=== PATIENT | female | born 1955 | race Caucasian/White ===

== ENCOUNTER 2023-11-22 13:22 | Emergency (ER) | payer MEDICARE, SELFPAY ==
--- NOTE | ~2023-11-22 | CT_ITS ---
EXAMINATION: CT FACIAL BONES WITHOUT CONTRAST CLINICAL INFORMATION: Right eye pain COMPARISON: None TECHNIQUE: Axial images obtained through the facial bones and orbits. Coronal and sagittal reformatted images are performed at CT scanner. Intravenous contrast was administered. [This CT examination was performed using dose optimization techniques as appropriate, variously including the following: *Automated exposure control *Adjustment of mA and/or kV according to patient size (this includes techniques or standardized protocols for targeted exams where dose is matched to indication/reason for exam; i.e. extremities or head) *Use of iterative reconstruction technique] DLP: 157 mGy-cm FINDINGS: There is no acute maxillofacial fracture. The pterygoid plates are intact. The zygomatic arches are intact. The lamina papyracea are intact. The orbital rims are intact. Small dependent air-fluid level in the left maxillary sinus. Minimal lobular mucosal thickening at the anterior medial left sphenoid sinus. Mastoid air cells and middle ear cavities are normally aerated. There is mild preseptal edema over the right orbital region. The orbital globes and retrobulbar structures are normal. Portions of the brain are unremarkable. CT/CT orbit BI w IV con IMPRESSION: 1. Mild preseptal edema over the right orbital region. Orbital globes and retrobulbar structures are normal. 2. Small air-fluid level in the left maxillary sinus.
[2023-11-22 13:31] VITALS: BP 149/86; PULSE 85; RESP 18; TEMP 37.2; O2SAT 96; BMI 1517.3
--- NOTE | 2023-11-22 13:33 | ED.GENADULT ---
HPI - General Adult General Chief complaint: Eye Problems Stated complaint: CT scan for eye Time Seen by Provider: 11/22/23 16:09 Source: patient Mode of arrival: ambulatory Limitations: no limitations History of Present Illness ED Provider: Анна Roberts PA-C HPI narrative: Patient is a 68 year old assigned female at with no reported medical history presenting to the emergency department today with right eye pain, drainage from right eye, and blurry vision of the right eye. Patient states that she woke up with right eye swelling, pain, discharge, and blurry vision. Patient states that she was seen at a [facility] for this and they recommended she come to an ER. Patient denies any dizziness, lightheadedness, abdominal pain, nausea, vomiting, fever, chills, double vision, loss of vision, chest pain, difficulty breathing, shortness of breath, back pain, night sweats, pain with urination, increased urinary frequency, increased urinary urgency, blood in her urine or stool, syncope or a near syncopal episode, recent trauma or falls, bowel incontinence, bladder incontinence, bowel retention, bladder retention, or any other complaints at this time. Onset (ago): hour(s) Location: eyes and right Severity: mild Severity scale (1-10): 3 Relieving factors: none Exacerbating factors: none Associated symptoms: denies other symptoms Treatments prior to arrival: none Related Data Previous Rx's ?Medication ?Instructions ?Recorded doxycycline hyclate 100 mg tablet 100 mg PO BID 7 days #14 tabs 11/22/23 polymyxin B sulfate 10,000 1 drp ophthalmic (eye) QID 7 days 11/22/23 unit-trimethoprim 1 mg/mL eye drops #10 mL cefdinir 300 mg capsule 300 mg PO BID 7 days #14 caps 11/28/23 Allergies Allergy/AdvReac Type Severity Reaction Status Date / Time No Known Allergies Allergy Verified 11/22/23 13:33 Review of Systems Constitutional: Constitutional: Reports no additional constitutional complaints, Denies chills, Denies fever(s) and Denies night sweats Eyes: Eyes: Reports no additional eye complaints, Denies blurry vision, Denies change in vision, Denies diplopia, Denies eye discharge, Denies loss of vision and Denies eye pain ENT: Denies dizziness Comments: right eye pain, right eye drainage, blurry vision of right eye Cardiovascular: Cardiovascular: Reports no additional cardiovascular complaints, Denies chest pain, Denies lightheadedness, Denies Loss of Consciousness and Denies dyspnea Respiratory: Respiratory: Reports no additional respiratory complaints and Denies dyspnea Gastrointestinal: Gastrointestinal: Reports no additional gastrointestinal complaints, Denies abdominal pain, Denies melena, Denies hematochezia, Denies change in bowel habits and Denies change in stool character Genitourinary: Genitourinary: Denies hematuria, Denies urinary frequency, Denies dysuria, Denies urinary incontinence, Denies urinary hesitancy and Denies urinary urgency Musculoskeletal: Musculoskeletal: Reports no additional musculoskeletal complaints, Denies numbness and Denies tingling Neurologic: Denies dizziness, Denies loss of vision, Denies numbness and Denies tingling Psychiatric: Psychiatric: Reports no additional psychiatric complaints Endocrine: Endocrine: Reports no additional endocrine complaints Hematologic/Lymphatic: Hematologic/Lymphatic: Reports no additional hematologic/lymphatic complaints Allergic/Immunologic: Allergic/Immunologic: Reports no additional allergic/immunologic complaints PMFSH Past Medical History Attestation statement: The following information was validated with the patient. Source: old records reviewed and nursing notes reviewed Social History Social History Advance Directives: No Advance Directives Information Provided: No Do you have a plan to hurt others: No Plan Physical Exam ED Vital Signs: Vital Signs - 24 hr 11/22/23 13:31 11/22/23 18:41 Temperature 98.9 F 97.2 F Pulse Rate 85 81 Respiratory Rate 18 18 Blood Pressure 149/86 H 158/80 H Pulse Oximetry 96 100 Oxygen Delivery Method Room Air Room Air BMI result Body Mass Index 1517.3 Const General: cooperative, no acute distress, alert and awake Nutritional Appearance: well nourished Orientation/consciousness: patient oriented x3 Limitations: no limitations HENMT Head: Yes normal to inspection and Yes atraumatic Ears: hearing grossly normal bilaterally and external ears normal General nose exam: Normal external nose present, no nasal discharge noted and no epistaxis Face and sinus: Yes normal facial exam, No abrasion and No laceration Mouth: Normal oral and palatal mucosa present, no drooling and no muffled voice Eyes Other: Pressure in R eye 13 and 12 in L eye Periorbital: periorbital findings abnormal right periorbital swelling and periorbital erythema Conjunctivae: conjunctival abnormal right conjunctival injection diffuse Pupils: Equal, round and reactive pupils present EOM: EOMs intact bilaterally Neck Neck: Yes normal visual inspection, Yes full ROM and Yes no lymphadenopathy Chest Chest palpation & inspection: normal inspection of the chest Resp Effort & Inspection: normal respiratory effort and able to speak in complete sentences GI Inspection: Yes normal to inspection Neuro General: patient oriented x3 and moves all extremities Cranial nerves: Yes Equal, round and reactive pupils present Cognition (Neuro): normal cognition Motor exam (neuro): 5/5 motor strength present throughout Sensory Exam: Normal double simultaneous stimulation for sensation Coordination: [id number] test normal Extrem General: Yes normal to inspection, Yes full ROM and Yes capillary refill normal Psych Appearance: grossly normal Mental Status: mental status grossly normal Affect: normal affect Attitude: cooperative Thought process: Normal thought process present Thought content: Normal thought content present Insight: Good insight present (Psych) Course Course Course Narrative: RME- 68 year old female presents for evaluation of right eye pain, redness, and discharge. She went to her PCP this morning and was sent in for a CT to rule out preseptal cellulitis. Clinical exam looks like conjunctivitis on the right. No obvious periorbital cellulitis. Plan for labs, CT scan Reevaluation(s) Reevaluation #1: 11/28/2023 --> Patient's eye culture came back positive for strep. Ceftin prescribed. Patient informed. Medications Administered Discontinued Medications Generic Name Dose Route Start Last Admin Trade Name Freq PRN Reason Stop Dose Admin Doxycycline Monohydrate 100 mg 11/22/23 17:06 11/22/23 17:46 Doxycycline Monohydrate 100 Mg Capsule PO 11/22/23 17:07 100 mg ONCE ONE Administration Ceftriaxone Sodium 1 gm/ 50 mls @ 100 mls/hr 11/22/23 17:06 11/22/23 17:49 Sodium Chloride IV 11/22/23 17:35 100 mls/hr ONCE ONE Administration Iohexol 100 ml 11/22/23 16:31 11/22/23 16:31 Iohexol 350 Mg/Ml 100 Ml Infus..Btl IV 11/22/23 16:32 85 ml ONCE ONE Administration Medical Decision Making Medical Decision Making [facility] Narrative: Patient is a 68 year old assigned female at with no reported medical history presenting to the emergency department today with right eye pain, discharge, and blurry vision of the right eye. Patient's physical exam was as noted in the physical exam portion of this note. Patient's blood work showed a mildly elevated WBC count of 10.9 but were otherwise unremarkable. Patient's orbit CT showed mild preseptal edema over the right orbital region with normal gloves and retrobulbar structures. I consulted with my attending physician, Dr. Devi who examined the patient. He recommended culturing the eye for gonorrhea as well as a routine culture and gram stain. He further recommended treating as cellulitis and conjunctivitis. I explained my physical exam findings as well as all test results to the patient. I answered all questions asked by the patient. Patient received her first dose of antibiotics while in the department. I stressed the importance of the patient taking her medication as prescribed. I stressed the importance of the patient following up with her primary care provider and an customer service specialist. I stressed the importance of the patient returning to the emergency department immediately if her symptoms were to worsen or if she were to develop any dizziness, shortness of breath, difficulty breathing, chest pain, blurry vision, loss of vision, nausea, vomiting, abdominal pain, fever, chills, back pain, or any other complaints. Patient verbalized agreement and understanding with this treatment plan and discharge. Differential Diagnosis Differential Diagnoses: The differential diagnosis associated with the presentation includes Conjunctivitis Cellulitis Preseptal cellulitis Orbital cellulitis Admission/Observation Consideration of admission/observation: Escalation of care including admission/observation considered Patient would have been admitted to the hospital had her work up had any findings where hospital admission was appropriate and her clinical presentation warranted hospital admission. Lab Data [facility] Lab Attestation statement: I reviewed the patient's lab results. My interpretation of these results are in the [facility] Rationale portion of this note. 11/22/23 13:42 11/22/23 13:42 Labs: Lab Results 11/22/23 11/22/23 Range/Units 13:42 15:50 WBC 10.9 H (4.8-10.8) X10*3/uL RBC 4.00 L (4.20-5.50) X10*6/uL Hgb 13.0 (12.0-16.0) g/dl Hct 37.9 (37.0-47.0) % MCV 94.8 (80.0-98.0) fL MCH 32.5 (27.0-33.0) pg MCHC 34.3 (31.0-35.0) g/dl RDW 12.6 (11.0-16.0) % Plt Count 253 (160-400) X10*3/uL MPV 9.1 L (9.4-12.3) fL Immature Gran % (Auto) 0.2 (0.0-0.4) % Neut % (Auto) 69.0 (45-73) % Lymph % (Auto) 20.5 (20-40) % [place] % (Auto) 8.4 (2-11) % Eos % (Auto) 1.4 (0-4) % Baso % (Auto) 0.5 (0-2) % Lymph # (Auto) 2.2 (1.2-4.9) X10*3/uL [place] # (Auto) 0.9 (0.1-1.2) X10*3/uL Eos # (Auto) 0.2 (0.0-0.4) X10*3/uL Baso # (Auto) 0.1 (0.0-0.2) X10*3/uL Abs Immat Gran (auto) 0.02 (0.00-0.03) X10*3/uL Absolute Neuts (auto) 7.5 (2.0-8.3) x10*3/uL Absolute Nucleated RBC 0.000 (0.0-0.012) X10*3/uL Nucleated RBC % (auto) 0.0 (0.0-0.2) /100WBC Sodium 139 (135-145) mmol/L Potassium 4.7 (3.3-5.1) mmol/L Chloride 104 (96-108) mmol/L Carbon Dioxide 23 (22-29) mmol/L Anion Gap 17 (12-20) BUN 14 (9-16) mg/dL Creatinine 0.69 (0.5-1.4) mg/dL Estim Creat Clear Calc -14.1 Estimated GFR > 60 Random Glucose 92 (60-115) mg/dL Lactic Acid 2.0 (0.5-2.0) mmol/L Calcium 10.2 (8.4-10.2) mg/dL Total Bilirubin 0.4 (0.0-1.0) mg/dL AST 18 (5-31) U/L ALT 16 (0-31) U/L Alkaline Phosphatase 82 (39-117) U/L Total Protein 7.9 (6.5-8.0) g/dL Albumin 4.1 (3.5-5.0) g/dL Lipase 19 (8-78) U/L Independent Interpretation I performed an independent interpretation of an: CT Scan Interpretation: My interpretation is in agreement with the radiologist's impression of this imaging study. EXAMINATION: CT FACIAL BONES WITHOUT CONTRAST CLINICAL INFORMATION: Right eye pain COMPARISON: None TECHNIQUE: Axial images obtained through the facial bones and orbits. Coronal and sagittal reformatted images are performed at CT scanner. Intravenous contrast was administered. [This CT examination was performed using dose optimization techniques as appropriate, variously including the following: *Automated exposure control *Adjustment of mA and/or kV according to patient size (this includes techniques or standardized protocols for targeted exams where dose is matched to indication/reason for exam; i.e. extremities or head) *Use of iterative reconstruction technique] DLP: 157 mGy-cm FINDINGS: There is no acute maxillofacial fracture. The pterygoid plates are intact. The zygomatic arches are intact. The lamina papyracea are intact. The orbital rims are intact. Small dependent air-fluid level in the left maxillary sinus. Minimal lobular mucosal thickening at the anterior medial left sphenoid sinus. Mastoid air cells and middle ear cavities are normally aerated. There is mild preseptal edema over the right orbital region. The orbital globes and retrobulbar structures are normal. Portions of the brain are unremarkable. CT/CT orbit BI w IV con IMPRESSION: 1. Mild preseptal edema over the right orbital region. Orbital globes and retrobulbar structures are normal. 2. Small air-fluid level in the left maxillary sinus. Dictated By: Johnny Victor MD Signed By: Electronically signed by Johnny Victor MD 11/22/23 4943 Radiology Impression Discussion of test interpretation with radiology: I have reviewed the radiologist's reading. Prescription Management I considered prescription management with: Antibiotic (patient prescribed antibiotics to cover conjunctivitis and preseptal cellulitis) Critical Care Time Critical Care Time Critical Care Time: Yes Total Critical Care Time: 48 Attestation: I spent 48 minutes of Critical Care Time with this patient. This does not include time spent on separately reported billable procedures. Discharge Plan Discharge Clinical Impression: Bacterial conjunctivitis, Periorbital cellulitis, Sinusitis Patient Disposition: Home, Self-Care Instructions: Sinusitis (ED), Periorbital Cellulitis in Adults (ED), Conjunctivitis (ED) Additional Instructions: Your CT scan was reassuring. Use your antibiotics as prescribed. Follow up with your primary care provider and an customer service specialist. Return to the emergency department immediately if your symptoms worsen or if you develop any dizziness, shortness of breath, difficulty breathing, chest pain, blurry vision, loss of vision, nausea, vomiting, abdominal pain, fever, chills, back pain, or any other complaints. Prescriptions: New doxycycline hyclate 100 mg tablet 100 mg PO BID 7 Days Qty: 14 0RF polymyxin B sulf-trimethoprim 10,000 unit- 1 mg/mL drops 1 drp ophthalmic (eye) QID 7 Days Qty: 10 0RF cefdinir 300 mg capsule 300 mg PO BID 7 Days Qty: 14 0RF Referrals: Jose C Cueto [Physician] - (Call to establish and follow up with an customer service specialist.) Silvino Sosa MD [Primary Care Provider] - Stand Alone Forms: Work/School Release Discharge Date/Time: 11/22/23 18:52 Print Language: Burmese
[2023-11-22 14:07] LABS: MANUAL DIFF FLAG NO
[2023-11-22 14:08] LABS: Basophils Absolute Auto 0.1 X10*3/uL (0.0-0.2); Basophils Percent Auto 0.5 % (0-2); Eosinophils Absolute Auto 0.2 X10*3/uL (0.0-0.4); Eosinophils Percent Auto 1.4 % (0-4); Hematocrit 37.9 % (37.0-47.0); Imm Gran Abs Auto 0.02 X10*3/uL (0.00-0.03); Imm Gran Pct Auto 0.2 % (0.0-0.4); Lymphocytes Absolute Auto 2.2 X10*3/uL (1.2-4.9); Lymphocytes Percent Auto 20.5 % (20-40); Mean Corpuscular HGB Conc 34.3 g/dl (31.0-35.0); Mean Corpuscular Hemoglobin 32.5 pg (27.0-33.0); Mean Corpuscular Volume 94.8 fL (80.0-98.0); Mean Platelet Volume 9.1 fL (9.4-12.3); Monocytes Absolute Auto 0.9 X10*3/uL (0.1-1.2); Monocytes Percent Auto 8.4 % (2-11); Neutrophils Absolute Auto 7.5 x10*3/uL (2.0-8.3); Platelet Count 253 X10*3/uL (160-400); Red Cell Distribution Width 12.6 % (11.0-16.0); White Blood Count 10.9 X10*3/uL (4.8-10.8)
[2023-11-22 14:25] LABS: Alanine Aminotransferase 16 U/L (0-31); Albumin Level 4.1 g/dL (3.5-5.0); Alkaline Phosphatase 82 U/L (39-117); Anion Gap 17 (12-20); Aspartate Amino Transferase 18 U/L (5-31); Bilirubin Total 0.4 mg/dL (0.0-1.0); Blood Urea Nitrogen 14 mg/dL (9-16); Calcium 10.2 mg/dL (8.4-10.2); Carbon Dioxide 23 mmol/L (22-29); Chloride 104 mmol/L (96-108); Creatinine Clr Calc Pharmacy -14.1; Estimated Glomerular Filt Rate > 60; Glucose Random 92 mg/dL (60-115); Lipase 19 U/L (8-78); Potassium 4.7 mmol/L (3.3-5.1); Sodium 139 mmol/L (135-145); Total Protein 7.9 g/dL (6.5-8.0)
--- NOTE | 2023-11-22 15:58 | MHC.EDTECH ---
BOTH SETS OF PATIENT BLOOD CULTURE AND LACTIC ACID DRAWN AND SENT TO LAB .
[2023-11-22] MEDS: iohexoL 350 MG/ML 100 ML INFUS..BTL IV (16:31)
[2023-11-22] MEDS: Doxycycline Monohydrate 100 MG CAPSULE PO (17:46)
[2023-11-22] MEDS: cefTRIAXone sodium 1 GM in 0.9 % Sodium Chloride 50 ML IV (17:49)
[2023-11-22 18:41] VITALS: BP 158/80; PULSE 81; RESP 18; TEMP 36.2; O2SAT 100
--- NOTE | 2023-11-28 12:41 | PC.NURSE ---
PT NOTIFIED OF STREP INFECTION R EYE. RX FOR CEFTIN SENT INTO PHARMACY BY [facility]
== END 2023-11-22 18:52 | disposition home or self-care (01) ==
PROVIDERS: Physician Assistant; Physician Assistant Medical; Emergency Provider Emergency Medicine; PCP Internal Medicine
DX: H10.89 Other conjunctivitis (principal); L03.213 Periorbital cellulitis; J32.9 Chronic sinusitis, unspecified; H57.11 Ocular pain, right eye; H53.8 Other visual disturbances
CPT/HCPCS: 36415; 70481; 80053; 83605; 83690; 85025; 87040; 87070; 87077; 87186; 87205; 96374; 99283; 99284; J0696; Q9967